=== PATIENT | male | born 1980 | race African-American/Black ===

== ENCOUNTER 2021-11-28 11:47 | Emergency (ER) | payer SELFPAY ==
[~2021-11-28] VITALS: Ht 188 cm; Wt 111.1 kg
[2021-11-28] MEDS ORDERED: KETOROLAC TROMETHAMINE 10 MG TAB PO ONE (13:00)
[2021-11-28] MEDS ORDERED: MEDROL4 M2 PO (13:01)
[2021-11-28] MEDS ORDERED: KETOROLAC TROME10 MG PEG (13:01)
[2021-11-28] MEDS ORDERED: METHOCARBAMOL750 MG PO (13:01)
[2021-11-28] MEDS ORDERED: PREDNISONE 20 MG TAB ONE (13:16)
[2021-11-29] MEDS ORDERED: PREDNISONE 20 MG TAB PO SCH (09:00)
== END 2021-11-28 13:01 | disposition home or self-care (01) ==
LOC: ER 12:12
DX: M54.41 Lumbago with sciatica, right side (principal)
CPT/HCPCS: 99282; J7512